=== PATIENT | female | born 1965 | race Hispanic/Latino ===

== ENCOUNTER 2017-04-20 09:01 | Outpatient (CLI) | payer BC ==
--- NOTE | 2017-04-20 11:10 | MMO ---
BILATERAL SCREENING MAMMOGRAM: DATE: 04/20/17 HISTORY: 52-year-old female for screening mammography. COMPARISON: 03/25/16, 02/20/15, 02/16/14, and 02/02/12. FINDINGS: Bilateral MLO and CC views of the breasts show scattered fibroglandular breast tissue. A benign-appe aring calcification is seen in the left breast. There is no evidence of suspicious mass, suspicious cluster of microcalcifications, or area of architectural distortion. Interpretation of this mammogram was performed with the assistance of computer-aided detection. IMPRESSION: BIRADS 2: Benign Finding(s) Annual screening mammography is recommended. POS: [facility]
== END 2017-04-20 09:02 | disposition home or self-care (01) ==
LOC: SCSMAMMO 09:01
PROVIDERS: ATTEND Obstetrics & Gynecology
DX: Z12.31 Encounter for screening mammogram for malignant neoplasm of breast (principal)
CPT/HCPCS: 77067; G0202

== ENCOUNTER 2018-02-07 11:29 | Emergency (ER) | payer BC ==
--- NOTE | 2018-02-07 12:05 | RAD ---
FRONTAL RADIOGRAPH CHEST: Date: 02/07/18 COMPARISON: None. HISTORY: Chest pain and bilateral arm tightness. FINDINGS: Lungs are clear. Heart and mediastinal contour grossly unremarkable. IMPRESSION: No acute findings. POS: [facility]
[2018-02-07 12:24] LABS: #Eosinphils 0.1 thou/uL (0.0-0.7); #Lymphocytes 1.9 thou/uL (1.20-3.40); #Monocytes 0.6 thou/uL (0.11-0.59); #Neutrophils 4.8 thou/uL (1.40-6.50); %Basophils 0.6 % (0.0-1.0); %Eosinophils 1.2 % (0.0-10.0); %Lymphocytes 26.1 % (21.0-51.0); %Monocytes 7.5 % (0.0-10.0); %Neutrophils 64.7 % (42.0-75.0); Hemoglobin 13.1 g/dL (12.0-16.0); Mean Corpuscular HGB CONC 34.2 g/dL (32.0-36.0); Mean Corpuscular Hemoglobin 31.1 pg (27.0-31.0); Mean Corpuscular Volume 90.9 fL (78.0-98.0); Mean Platelet Volume 6.8 fL (7.4-10.4); Platelet Count 232 thou/uL (130-400); RBC Distribution Width 11.4 % (11.5-14.5); Red Blood Cell (RBC) Count 4.22 mill/uL (4.20-5.40); White Blood Cell (WBC) Count 7.4 thou/uL (4.8-10.8)
[2018-02-07 12:42] LABS: ALT (SGPT) 20 U/L (8-55); AST (SGOT) 24 U/L (5-34); Alkaline Phosphatase 88 U/L (40-150); Anion Gap 12 mmol/L (10-20); BUN (Urea Nitrogen) 11 mg/dL (9.8-20.1); Bilirubin, Total 0.3 mg/dL (0.2-1.2); CK (CPK) 67 U/L (29-168); Calc. Creatinine Clearance 0 mL/min (70-130); Calcium 8.9 mg/dL (7.8-10.44); Carbon Dioxide 25 mmol/L (22-29); Chloride 107 mmol/L (98-107); Estimated GFR-MDRD Greater than 90; Glucose 106 mg/dL (70-105); Potassium 4.3 mmol/L (3.5-5.1); Sodium 140 mmol/L (136-145)
[2018-02-07 12:46] LABS: CKMB 0.5 ng/mL (0-6.6); Troponin I Less than 0.010 ng/mL (< 0.028)
== END 2018-02-07 15:52 | disposition home or self-care (01) ==
LOC: ERS 11:29
DX: G56.03 Carpal tunnel syndrome, bilateral upper limbs (principal); R07.9 Chest pain, unspecified; K21.9 Gastro-esophageal reflux disease without esophagitis; I10 Essential (primary) hypertension; F41.9 Anxiety disorder, unspecified
CPT/HCPCS: 36415; 71045; 80053; 82553; 84484; 85025; 85379; 93005

== ENCOUNTER 2018-05-10 14:31 | Outpatient (CLI) | payer BC | END 2018-05-10 14:32 | disposition home or self-care (01) | LOC: BICMAMMO 14:31 | PROVIDERS: ATTEND Obstetrics & Gynecology | DX: Z12.31 Encounter for screening mammogram for malignant neoplasm of breast (principal) | CPT/HCPCS: 77063; 77067 ==

== ENCOUNTER 2018-05-12 14:24 | Emergency (ER) | payer BC ==
[2018-05-12 15:11] LABS: #Basophils 0.1 thou/uL (0.0-0.2); #Eosinphils 0.1 thou/uL (0.0-0.7); #Lymphocytes 1.1 thou/uL (1.20-3.40); #Monocytes 0.4 thou/uL (0.11-0.59); #Neutrophils 5.8 thou/uL (1.40-6.50); %Basophils 0.8 % (0.0-1.0); %Eosinophils 1.1 % (0.0-10.0); %Lymphocytes 14.7 % (21.0-51.0); %Monocytes 5.2 % (0.0-10.0); %Neutrophils 78.2 % (42.0-75.0); Hemoglobin 13.5 g/dL (12.0-16.0); Mean Corpuscular HGB CONC 32.8 g/dL (32.0-36.0); Mean Corpuscular Hemoglobin 30.3 pg (27.0-31.0); Mean Corpuscular Volume 92.4 fL (78.0-98.0); Mean Platelet Volume 7.5 fL (7.4-10.4); Platelet Count 256 thou/uL (130-400); RBC Distribution Width 11.7 % (11.5-14.5); Red Blood Cell (RBC) Count 4.44 mill/uL (4.20-5.40); White Blood Cell (WBC) Count 7.4 thou/uL (4.8-10.8)
[2018-05-12 15:33] LABS: ALT (SGPT) 24 U/L (8-55); AST (SGOT) 22 U/L (5-34); Albumin 4.3 g/dL (3.5-5.0); Alkaline Phosphatase 79 U/L (40-150); Anion Gap 14 mmol/L (10-20); BUN (Urea Nitrogen) 15 mg/dL (9.8-20.1); Bilirubin, Total 0.4 mg/dL (0.2-1.2); Calc. Creatinine Clearance 0 mL/min (70-130); Calcium 9.3 mg/dL (7.8-10.44); Carbon Dioxide 24 mmol/L (22-29); Chloride 106 mmol/L (98-107); Estimated GFR-MDRD Greater than 90; Globulin 3.4 g/dL (2.4-3.5); Glucose 119 mg/dL (70-105); Potassium 3.7 mmol/L (3.5-5.1); Protein, Total 7.7 g/dL (6.0-8.3); Sodium 140 mmol/L (136-145)
--- NOTE | 2018-05-12 16:50 | CT ---
NONCONTRAST CT HEAD CT ANGIOGRAM HEAD WITH IV CONTRAST AND 3D RECONSTRUCTIONS 05/12/18 HISTORY: Dizziness with onset of symptoms of 12:[address] head. COMPARISON: None available. FINDINGS: There is no evidence of an acute cortical infarction, hemorrhage, mass effect of midline shift. The v entricular system is normal in size, shape and position. The visualized paranasal sinuses and mastoid air cells are clear. The calvarial structures are intact. IMPRESSION: No acute intracranial abnormalities demonstrated. CT ANGIOGRAM HEAD WITH IV CONTRAST AND 3D RECONSTRUCTIONS: COMPARISON: None available. FINDINGS: The bilateral middle cerebral and anterior cerebral arteries are patent. The distal bilateral interna l carotid arteries appear patent. The distal bilateral vertebral arteries and basilar artery are lora nt. The bilateral posterior cerebral arteries are patent. No focal stenosis or branch occlusion is ap preciated. No aneurysm is seen within the limitations of the technique of this examination. IMPRESSION: No focal stenosis or branch occlusion is seen involving the [place] or vertebrobasilar syste m. POS: [facility]
[2018-05-12 16:58] LABS: Bilirubin Negative (Negative); Blood, Urine Negative (Negative); Clarity CLEAR (Clear); Glucose, Urine (Dipstick) Negative (Negative); Leukocyte Negative (Negative); Nitrite Negative (Negative); Protein, Urine (Dipstick) Negative (Neg-Trace); Specific Gravity, Urine 1.013 (1.002-1.036); pH, Urine 6.5 (5.0-9.0)
[2018-05-12] MEDS ORDERED: Meclizine HCl 25 MG TAB ONE (17:55)
== END 2018-05-12 18:46 | disposition home or self-care (01) ==
LOC: ERS 14:24
DX: R42 Dizziness and giddiness (principal); K21.9 Gastro-esophageal reflux disease without esophagitis; I10 Essential (primary) hypertension; F41.9 Anxiety disorder, unspecified; Z79.82 Long term (current) use of aspirin; Z79.899 Other long term (current) drug therapy
CPT/HCPCS: 36415; 70496; 80053; 81003; 85025; 93005

== ENCOUNTER 2018-06-21 08:54 | Day surgery (SDC) | payer BC ==
[2018-06-21] MEDS ORDERED: PROPOFOL 200 MG/20 ML VIAL ONE (16:38)
[2018-06-21] MEDS ORDERED: Lidocaine 1% PF 5 ML VIAL ONE (16:38)
--- NOTE | 2018-06-21 17:27 | OP ---
DATE OF PROCEDURE: 06/21/2018 YOUTH DEVELOPMENT PROFESSIONAL SURGEON: None. PROCEDURE PERFORMED: Colonoscopy, surveillance. The patient's last colonoscopy was 3 years ago. MEDICATIONS: See Anesthesia record. FINDINGS: After discussion of the risks, benefits, and alternatives of the procedure, informed consent was obtained and witnessed. Pre-endoscopic cardiopulmonary examination was satisfactory. Time-out was performed before sedation was achieved. Sedation was achieved with anesthesia assistance in the endoscopy unit. Digital rectal exam was performed, which demonstrates some external hemorrhoids. A Pentax adult colonoscope was inserted into the anus and passed forward to the cecum in the usual fashion. The cecal base was identified by the appendiceal orifice as well as the ileocecal valve. The terminal ileum was intubated and the ileal mucosa appeared normal. The colonoscope was slowly withdrawn in a gradual and circumferential manner with careful examination of the entire colonic mucosa including retroflexed views in the right colon and then in the rectum. The colonic mucosa appeared normal throughout. There was no evidence of any polyps or mass lesions on this exam. There was diverticulosis in the sigmoid colon. There were some small internal hemorrhoids. The colonoscope was completely withdrawn and the patient allowed to recovery. The patient tolerated the procedure well. There were no immediate postprocedure complications. IMPRESSION: 1. Sigmoid diverticulosis. 2. Internal and external hemorrhoids. 3. Otherwise, normal colonoscopy to the terminal ileum. RECOMMENDATIONS: Repeat colonoscopy for surveillance in 5 years. Job ID: [id number]
--- NOTE | 2018-06-22 08:09 | OP ---
DATE OF PROCEDURE: 06/21/2018 SURGEON: Tristen Grove M.D. CAD DEVELOPER SURGEON: None. PROCEDURE: Surveillance colonoscopy. INDICATION: Personal history of colon polyps. The last colonoscopy was 3 years ago. MEDICATIONS: See anesthesia record. FINDINGS: After discussion of the risks, benefits and alternatives of the procedure, informed consen t was obtained and witnessed. Pre-endoscopic cardiopulmonary examination was satisfactory. Timeout was performed before sedation was achieved. Sedation was achieved with anesthesia assistance in the endoscopy unit. A digital rectal exam was performed which demonstrated some external hemorrhoidal sk in tags. A Pentax adult colonoscope was inserted into the anus and passed forward to the cecum in th e usual fashion. The cecal base was identified by the appendiceal orifice as well as the ileocecal v alve. The terminal ileum was intubated and the ileal mucosa appeared normal. The colonoscope was th en slowly withdrawn in a gradual and circumferential manner with careful examination of the entire co lonic mucosa including retroflexed views in the right colon and in the rectum. The quality of the pr ep was good. The colonic mucosa appeared normal throughout. There were no polyps or mass lesions vi sualized. There is diverticulosis in the sigmoid colon and small internal hemorrhoids. The colonosc ope was completely withdrawn and the patient allowed to recover. The patient tolerated the procedure well. There were no immediate post-procedure complications. IMPRESSION: 1. Sigmoid diverticulosis. 2. Internal and external hemorrhoids. 3. Otherwise, normal colonoscopy to the terminal ileum. RECOMMENDATIONS: Repeat colonoscopy for surveillance in 5 years.
== END 2018-06-21 13:47 | disposition home or self-care (01) ==
LOC: SDC 08:54
PROVIDERS: ATTEND Internal Medicine
PROC: 0DJD8ZZ Inspection of Lower Intestinal Tract, Via Natural or Artificial Opening Endoscopic (ICD-10-PCS; principal; 2018-06-21)
DX: Z12.11 Encounter for screening for malignant neoplasm of colon (principal); K57.30 Diverticulosis of large intestine without perforation or abscess without bleeding; K64.4 Residual hemorrhoidal skin tags; K64.8 Other hemorrhoids; Z86.010 Personal history of colon polyps; Z79.82 Long term (current) use of aspirin; Z79.899 Other long term (current) drug therapy
CPT/HCPCS: J2001; J2704

== ENCOUNTER 2018-07-12 10:16 | Outpatient (CLI) | payer BC ==
[2018-07-12 11:26] LABS: Anion Gap 16 mmol/L (10-20); BUN (Urea Nitrogen) 13 mg/dL (9.8-20.1); Calc. Creatinine Clearance 0 mL/min (70-130); Calcium 9.4 mg/dL (7.8-10.44); Carbon Dioxide 23 mmol/L (22-29); Chloride 108 mmol/L (98-107); Estimated GFR-MDRD Greater than 90; Glucose 102 mg/dL (70-105); Potassium 4.7 mmol/L (3.5-5.1); Sodium 142 mmol/L (136-145)
[2018-07-12 11:47] LABS: #Basophils 0.1 thou/uL (0.0-0.2); #Eosinphils 0.1 thou/uL (0.0-0.7); #Lymphocytes 1.8 thou/uL (1.20-3.40); #Monocytes 0.5 thou/uL (0.11-0.59); #Neutrophils 5.3 thou/uL (1.40-6.50); %Basophils 0.7 % (0.0-1.0); %Eosinophils 1.1 % (0.0-10.0); %Lymphocytes 23.3 % (21.0-51.0); %Monocytes 5.9 % (0.0-10.0); %Neutrophils 69.1 % (42.0-75.0); Hemoglobin 13.2 g/dL (12.0-16.0); Mean Corpuscular HGB CONC 32.6 g/dL (32.0-36.0); Mean Corpuscular Hemoglobin 29.6 pg (27.0-31.0); Mean Corpuscular Volume 90.7 fL (78.0-98.0); Mean Platelet Volume 7.4 fL (7.4-10.4); Platelet Count 278 thou/uL (130-400); RBC Distribution Width 11.6 % (11.5-14.5); Red Blood Cell (RBC) Count 4.47 mill/uL (4.20-5.40); White Blood Cell (WBC) Count 7.7 thou/uL (4.8-10.8)
--- NOTE | 2018-07-12 17:55 | EKG ---
Test Reason : Blood Pressure : / mmHG Vent. Rate : 066 BPM Atrial Rate : 066 BPM P-R Int : 120 ms QRS Dur : 086 ms QT Int : 436 ms P-R-T Axes : 043 038 025 degrees QTc Int : 457 ms Normal sinus rhythm Normal ECG When compared with ECG of 12-MAY-2018 14:49, No significant change was found Confirmed by MIMI GARVEY ([id number]) on 07/12/2018 5:55:02 PM Referred By: ALFERD Confirmed By:MIMI GRAVEY
== END 2018-07-12 10:17 | disposition home or self-care (01) ==
LOC: LABBT 10:16
PROVIDERS: ATTEND Orthopaedic Surgery
DX: Z01.818 Encounter for other preprocedural examination (principal); G56.01 Carpal tunnel syndrome, right upper limb
CPT/HCPCS: 80048; 85025; 93005; 93010

== ENCOUNTER 2018-07-13 07:09 | Day surgery (SDC) | payer BC ==
[2018-07-12 10:29] VITALS: BMI 48.8
--- NOTE | 2018-07-12 14:22 | HP ---
HISTORY OF PRESENT ILLNESS: The patient is a 53-year-old female, who has a several-month history of pain and tingling in both hands, right greater than the left. She has had no injury. She has had persistent symptoms at rest, restriction of activities, use of a splint, partial relief with steroids. PAST MEDICAL HISTORY: The patient has a history of obesity, anxiety, hypertension, reflux, allergies. PAST SURGICAL HISTORY: She has had a previous Lap-Band surgery. CURRENT MEDICATIONS: Include, 1. Aspirin. 2. Multivitamins. 3. Mirena. 4. Omeprazole. 5. . ALLERGIES: SHE HAS NO KNOWN ALLERGIES. FAMILY HISTORY: Otherwise unremarkable. SOCIAL HISTORY: Otherwise unremarkable. REVIEW OF SYSTEMS: Otherwise unremarkable. PHYSICAL EXAMINATION: GENERAL: Heavy-set female. HEENT: Unremarkable. NECK: Supple. CHEST: Clear. HEART: Regular rate and rhythm. ABDOMEN: Soft and nontender. RECTAL: Deferred. GENITAL: Deferred. EXTREMITIES: Pertinent findings related to both wrists. There is no swelling. There is no point tenderness. On the right, there is a positive Tinel sign and positive Phalen test. On the left, Tinel's and Phalen's are negative. She has full range of motion bilaterally. There is no point tenderness. There is subjective numbness in the median nerve distribution on the right. No definite sensory deficit on the left. No definite motor deficit bilaterally. There are good distal pulses, good capillary refill. DIAGNOSTIC STUDIES: Electrodiagnostic study was performed by Dr. Barakat revealed [id number] carpal tunnel syndrome on the right and [id number] on the left. IMPRESSION: Bilateral carpal tunnel syndrome, right symptomatic more than left. PLAN: Endoscopic possible open right carpal tunnel release. She may eventually require a staged procedure on the left. The nature of the surgery and length of recovery and potential complications such as infection, loss of motion, incomplete relief, nerve injury recurrence, and need for additional treatment or repeat surgery have been discussed in detail. Job ID: [id number]
[2018-07-13] MEDS ORDERED: Ondansetron PF 4 MG/2 ML Vial ONE (08:41)
[2018-07-13] MEDS ORDERED: Famotidine/PF 20 mg/2ml Vial ONE (08:41)
[2018-07-13] MEDS ORDERED: Scopolamine 1.5 mg/72 hour Patch ONE (08:41)
[2018-07-13] MEDS ORDERED: Bupivacaine PF 0.5% 30 ML VIAL ONE (09:49)
[2018-07-13] MEDS ORDERED: Lidocaine 1% (PF) 30 ML VIAL ONE (09:49)
[2018-07-13] MEDS ORDERED: Midazolam HCl 2 mg/2 ml Vial ONE (10:02)
[2018-07-13] MEDS ORDERED: Fentanyl 100 MCG/2 ML VIAL ONE (10:03)
--- NOTE | 2018-07-14 10:32 | OP ---
DATE OF PROCEDURE: 07/13/2018 ANESTHESIA: Local plus TIVA. PREOPERATIVE DIAGNOSIS: Right carpal tunnel syndrome. POSTOPERATIVE DIAGNOSIS: Right carpal tunnel syndrome. PROCEDURE PERFORMED: Right endoscopic carpal tunnel release. DESCRIPTION OF PROCEDURE: After satisfactory anesthesia was induced in supine position, the patient was prepped and draped in routine manner. A field block was accomplished with 1% plain lidocaine, approximately 10 mL. The right arm was elevated and exsanguinated with an Esmarch bandage and the tourniquet was inflated to 250 mmHg. A 2-cm transverse incision was made in the proximal wrist flexion crease, carried down to the subcutaneous tissues. Bleeding points were controlled with Bovie cautery. Using sharp and blunt dissection, a distally based flap at deep forearm fascia was developed, retracted distally. Palmaris longus tendon was retracted radially. Proximally to the deep forearm fascia was split under direct visualization with small scissors to make sure there was no proximal impingement of the median nerve. Synovial elevator was introduced into the carpal tunnel beneath the transverse carpal ligament and synovium came under the surface. Carpal tunnel dilators were inserted. The ScaleIO Archana endoscopic carpal tunnel release system was introduced beneath the transverse carpal ligament ring finger. The distal edge of the ligament was easily identified and then divided in a distal proximal direction by pulling the trigger of the assembly and engaging the knife and withdrawing the scope proximally. This was done at several stages to make sure there was complete division of the transverse carpal ligament, which was documented with video printer. After withdrawing the scope, the carpal tunnel dilator could be inserted into the carpal tunnel and there were markedly improved passage and subcutaneous position of the instrument. The scope was reintroduced into the carpal tunnel. There was wide separation of the two of the transverse carpal ligament. The tourniquet was released at 6 minutes. There was no excessive bleeding and the scope was withdrawn. The wound was then thoroughly irrigated and closed with running subcuticular 3-0 nylon. Sterile dressing was applied, and the patient immobilized in a Velcro wrist splint. She was taken from the operating room in stable condition. There were no apparent intraoperative complications. The estimated blood loss was negligible. The patient will be discharged home in satisfactory condition to use ice, elevation, given written wound care instructions. She was given a prescription for Flushing 5 for pain 40 tablets. She will recheck in my office in two weeks or sooner if there are any problems prior to that time. Job ID: [id number]
== END 2018-07-13 11:55 | disposition home or self-care (01) ==
LOC: SDC 07:09
PROVIDERS: ATTEND Orthopaedic Surgery
PROC: 01N54ZZ Release Median Nerve, Percutaneous Endoscopic Approach (ICD-10-PCS; principal; 2018-07-13)
DX: G56.03 Carpal tunnel syndrome, bilateral upper limbs (principal); I10 Essential (primary) hypertension; K21.9 Gastro-esophageal reflux disease without esophagitis; E66.9 Obesity, unspecified; Z68.42 Body mass index [BMI] 45.0-49.9, adult; F41.9 Anxiety disorder, unspecified; Z98.84 Bariatric surgery status; Z79.82 Long term (current) use of aspirin; Z79.899 Other long term (current) drug therapy
CPT/HCPCS: J2001; J2250; J2405; J3010; S0020; S0028

== ENCOUNTER 2021-04-21 18:30 | Outpatient (CLI) | payer BC | END 2021-04-21 18:31 | disposition home or self-care (01) | LOC: SLEEPLAB 18:30 | PROVIDERS: ATTEND Family Medicine | DX: G47.10 Hypersomnia, unspecified (principal); G47.33 Obstructive sleep apnea (adult) (pediatric); R53.83 Other fatigue; G47.00 Insomnia, unspecified; R06.83 Snoring; I10 Essential (primary) hypertension; E66.9 Obesity, unspecified; Z68.43 Body mass index [BMI] 50.0-59.9, adult | CPT/HCPCS: 95806 ==

== ENCOUNTER 2024-02-18 14:50 | Outpatient (CLI) | payer BC | END 2024-02-18 14:51 | disposition home or self-care (01) | LOC: BICMAMMO 14:50 | PROVIDERS: ATTEND Obstetrics & Gynecology | DX: N64.4 Mastodynia (principal) | CPT/HCPCS: 77066; G0279 ==

== ENCOUNTER 2024-06-02 06:21 | Day surgery (SDC) | payer BC ==
[2024-06-01 10:06] VITALS: BMI 54.6
[2024-06-02] MEDS ORDERED: PROPOFOL 20 ML ONE ×2 (09:04→09:18)
[2024-06-02] MEDS ORDERED: fentaNYL PF 100 MCG/2 ML SYRINGE ONE (09:04)
[2024-06-02] MEDS ORDERED: Midazolam HCl 2 mg/2 ml Vial ONE (09:04)
[2024-06-02] MEDS ORDERED: Lidocaine 1% PF 5 ML VIAL ONE (09:05)
== END 2024-06-02 10:13 | disposition home or self-care (01) ==
LOC: SDC 06:21
PROVIDERS: ATTEND Internal Medicine
PROC: 0DBH8ZZ Excision of Cecum, Via Natural or Artificial Opening Endoscopic (ICD-10-PCS; principal; 2024-06-02)
DX: Z12.11 Encounter for screening for malignant neoplasm of colon (principal); D12.0 Benign neoplasm of cecum; K57.30 Diverticulosis of large intestine without perforation or abscess without bleeding; K64.8 Other hemorrhoids; K21.9 Gastro-esophageal reflux disease without esophagitis; I10 Essential (primary) hypertension; G47.30 Sleep apnea, unspecified; E66.9 Obesity, unspecified; Z87.59 Personal history of other complications of pregnancy, childbirth and the puerperium; Z90.89 Acquired absence of other organs; Z80.0 Family history of malignant neoplasm of digestive organs; Z68.43 Body mass index [BMI] 50.0-59.9, adult
CPT/HCPCS: 88305; J2250; J2704